=== PATIENT | female | born 1990 | race Caucasian/White ===

== ENCOUNTER 2020-05-05 12:58 | Outpatient (REF) | payer OTHER, SELFPAY | END 2020-05-05 12:59 | disposition home or self-care (01) | LOC: HO.LAB 12:58 | PROVIDERS: Visit Provider Internal Medicine | DX: Z20.828 Contact with and (suspected) exposure to other viral communicable diseases (principal) | CPT/HCPCS: C9803; U0003 ==

== ENCOUNTER 2020-11-08 20:41 | Emergency (ER) | payer OTHER, SELFPAY ==
[2020-11-08 20:59] VITALS: BP 138/75; PULSE 75; RESP 16; TEMP 37.2; O2SAT 100; BMI 48.1
--- NOTE | 2020-11-08 22:10 | PC.NURSE ---
UA obtained and sent. Awaiting primary MD eval.
[2020-11-08 22:13] LABS: Glucose Urine UA NEG (NEG); Leukocyte Esterase Urine NEG (NEG); Nitrite Urine NEG (NEG); Specific Gravity - Urine >= 1.030 (1.005-1.025); Urine Blood NEG (NEG); Urine Ketones NEG (NEG); Urine Protein TRACE MG/DL (NEG-TRACE)
[2020-11-08 22:14] LABS: Appearance Urine CLEAR; Color Urine DARK YELLOW
[2020-11-08 22:15] LABS: UPreg QC Valid YES; Urine Pregnancy POSITIVE (NEGATIVE)
[2020-11-08 22:25] VITALS: BP 106/78; PULSE 74; RESP 16; TEMP 36.4; O2SAT 100
--- NOTE | 2020-11-08 22:38 | ED.ABDPAIN ---
HPI - Abdominal Pain General Chief Complaint: Abdominal Pain Stated Complaint: ABD, BACK PAIN Time Seen by Provider: 11/08/20 22:36 Source: patient Mode of arrival: ambulatory Limitations: no limitations History of Present Illness HPI narrative: Patient's history of constipation complaining of lower abdominal pain for last 1 week with slight nausea no vomiting no diarrhea last bowel movement was couple of days ago patient has missed her menstrual period last month. No vaginal bleeding or spotting no vomiting Related Data Allergies Allergy/AdvReac Type Severity Reaction Status Date / Time No Known Allergies Allergy Unverified 02/07/20 17:16 Review of Systems Review of Systems Yes all other systems are reviewed and are negative Physical Exam Vital Signs: Vital Signs: Last Vital Signs Temp 97.6 F 11/08/20 22:25 Pulse 74 11/08/20 22:25 Resp 16 11/08/20 22:25 BP 106/78 11/08/20 22:25 Pulse Ox 100 11/08/20 22:25 Body Mass Index 48.1 Appearance: Alert. Oriented X3. No acute distress. Eyes: PERRLA, No Nystagmus ENT: Pharynx normal. Oral Mucosa moist Neck: Normal inspection. Neck supple. CVS: Normal heart rate and rhythm. Pulses normal. Respiratory: No respiratory distress. Equal air entry bilateral, no wheezing/rales/rhonchi Abdomen: Soft and mild diffuse tenderness lower abdomen Bowel sounds are present, no mass palpable, no CVA tenderness Skin: Skin warm and dry. Normal skin color. Normal skin turgor. Extremities: No lower extremity edema. No calf tenderness Neuro: Oriented X 3. No motor deficit. No sensory deficit. MDM - Abdominal Pain MDM Narrative Medical decision making narrative: Patient's early likely 5-6 weeks advised to follow with Ob patient's blood type is O-positive Lab Data Attestation: I reviewed the patient's lab results. Result diagrams: 11/08/20 22:48 11/08/20 22:48 Labs: Lab Results 11/08/20 11/08/20 11/08/20 Range/Units 22:00 22:00 22:48 WBC 10.4 (4.8-10.8) X10*3/uL RBC 4.33 (4.20-5.50) X10*6/uL Hgb 11.7 L (12.0-16.0) g/dl Hct 35.8 L (37-47) % MCV 82.7 (80-98) fL MCH 27.0 (27.0-33.0) pg MCHC 32.7 (31.0-35.0) g/dl RDW 14.1 (11.0-16.0) % Plt Count 207 (160-400) X10*3/uL MPV 10.1 (9.4-12.3) fL Immature Gran % (Auto) 0.3 (0.0-0.4) % Neut % (Auto) 61.2 (45-73) % Lymph % (Auto) 31.1 (20-40) % [place] % (Auto) 6.5 (2-11) % Eos % (Auto) 0.6 (0-4) % Baso % (Auto) 0.3 (0-2) % Lymph # (Auto) 3.2 (1.2-4.9) X10*3/uL [place] # (Auto) 0.7 (0.1-1.2) X10*3/uL Eos # (Auto) 0.1 (0.0-0.4) X10*3/uL Baso # (Auto) 0.0 (0.0-0.2) X10*3/uL Abs Immat Gran (auto) 0.03 (0.00-0.03) X10*3/uL Absolute Neuts (auto) 6.4 (2.0-8.3) X10*3/uL Absolute Nucleated RBC 0.000 (0.0-0.012) X10*3/uL Nucleated RBC % (auto) 0.0 (0.0-0.2) /100WBC Sodium (135-145) mmol/L Potassium (3.3-5.1) mmol/L Chloride (96-108) mmol/L Carbon Dioxide (22-29) mmol/L Anion Gap (12-20) BUN (9-16) mg/dL Creatinine (0.5-1.4) mg/dL Estim Creat Clear Calc Estimated GFR Random Glucose (60-115) mg/dL Calcium (8.4-10.2) mg/dL Beta HCG, Quant mIU/mL Urine Color DARK YELLOW Urine Appearance CLEAR Urine pH 6.0 (5.0-8.0) Ur Specific [place] >= 1.030 H (1.005-1.025) Urine Protein TRACE (NEG-TRACE) MG/DL Urine Glucose (UA) NEG (NEG) MG/DL Urine Ketones NEG (NEG) MG/DL Urine Blood NEG (NEG) Urine Nitrite NEG (NEG) Ur Leukocyte Esterase NEG (NEG) Urine Test POSITIVE H (NEGATIVE) Blood Type 11/08/20 11/08/20 Range/Units 22:48 22:48 WBC (4.8-10.8) X10*3/uL RBC (4.20-5.50) X10*6/uL Hgb (12.0-16.0) g/dl Hct (37-47) % MCV (80-98) fL MCH (27.0-33.0) pg MCHC (31.0-35.0) g/dl RDW (11.0-16.0) % Plt Count (160-400) X10*3/uL MPV (9.4-12.3) fL Immature Gran % (Auto) (0.0-0.4) % Neut % (Auto) (45-73) % Lymph % (Auto) (20-40) % [place] % (Auto) (2-11) % Eos % (Auto) (0-4) % Baso % (Auto) (0-2) % Lymph # (Auto) (1.2-4.9) X10*3/uL [place] # (Auto) (0.1-1.2) X10*3/uL Eos # (Auto) (0.0-0.4) X10*3/uL Baso # (Auto) (0.0-0.2) X10*3/uL Abs Immat Gran (auto) (0.00-0.03) X10*3/uL Absolute Neuts (auto) (2.0-8.3) X10*3/uL Absolute Nucleated RBC (0.0-0.012) X10*3/uL Nucleated RBC % (auto) (0.0-0.2) /100WBC Sodium 137 (135-145) mmol/L Potassium 4.2 (3.3-5.1) mmol/L Chloride 105 (96-108) mmol/L Carbon Dioxide 26 (22-29) mmol/L Anion Gap 10 L (12-20) BUN 16 (9-16) mg/dL Creatinine 0.84 (0.5-1.4) mg/dL Estim Creat Clear Calc 141.1 Estimated GFR > 60 Random Glucose 107 (60-115) mg/dL Calcium 8.8 (8.4-10.2) mg/dL Beta HCG, Quant 6845 mIU/mL Urine Color Urine Appearance Urine pH (5.0-8.0) Ur Specific [place] (1.005-1.025) Urine Protein (NEG-TRACE) MG/DL Urine Glucose (UA) (NEG) MG/DL Urine Ketones (NEG) MG/DL Urine Blood (NEG) Urine Nitrite (NEG) Ur Leukocyte Esterase (NEG) Urine Test (NEGATIVE) Blood Type O Positive Discharge Plan Discharge Clinical Impression: at early stage Patient Disposition: Home, Self-Care Instructions: First Trimester (ED) Additional Instructions: Follow-up with OB your about 5-6 weeks Referrals: Venkata Sumner MD [Physician] - 2 weeks [facility] Social History Social History Advance Directives: No Advance Directives Information Provided: Yes
[2020-11-08 22:55] LABS: MANUAL DIFF FLAG NO
--- NOTE | 2020-11-08 22:55 | PC.NURSE ---
radio/tv technician at bedside to obtain labs.
[2020-11-08 22:56] LABS: Basophils Percent Auto 0.3 % (0-2); Eosinophils Absolute Auto 0.1 X10*3/uL (0.0-0.4); Eosinophils Percent Auto 0.6 % (0-4); Hematocrit 35.8 % (37-47); Hemoglobin 11.7 g/dl (12.0-16.0); Imm Gran Abs Auto 0.03 X10*3/uL (0.00-0.03); Imm Gran Pct Auto 0.3 % (0.0-0.4); Lymphocytes Absolute Auto 3.2 X10*3/uL (1.2-4.9); Lymphocytes Percent Auto 31.1 % (20-40); Mean Corpuscular HGB Conc 32.7 g/dl (31.0-35.0); Mean Corpuscular Volume 82.7 fL (80-98); Mean Platelet Volume 10.1 fL (9.4-12.3); Monocytes Absolute Auto 0.7 X10*3/uL (0.1-1.2); Monocytes Percent Auto 6.5 % (2-11); Neutrophils Absolute Auto 6.4 X10*3/uL (2.0-8.3); Neutrophils Percent Auto 61.2 % (45-73); Platelet Count 207 X10*3/uL (160-400); Red Blood Count 4.33 X10*6/uL (4.20-5.50); Red Cell Distribution Width 14.1 % (11.0-16.0); White Blood Count 10.4 X10*3/uL (4.8-10.8)
[2020-11-08 23:36] LABS: Anion Gap 10 (12-20); Blood Urea Nitrogen 16 mg/dL (9-16); Calcium 8.8 mg/dL (8.4-10.2); Carbon Dioxide 26 mmol/L (22-29); Chloride 105 mmol/L (96-108); Creatinine Clr Calc Pharmacy 141.1; Estimated Glomerular Filt Rate > 60; Glucose Random 107 mg/dL (60-115); Potassium 4.2 mmol/L (3.3-5.1); Sodium 137 mmol/L (135-145)
[2020-11-08 23:43] LABS: HCG Quantitative 6845 mIU/mL
[2020-11-08 23:57] VITALS: BP 126/81; PULSE 74; RESP 16; O2SAT 100
== END 2020-11-09 00:04 | disposition home or self-care (01) ==
PROVIDERS: Emergency Provider Internal Medicine
DX: O26.891 Other specified pregnancy related conditions, first trimester (principal); R10.30 Lower abdominal pain, unspecified; Z3A.00 Weeks of gestation of pregnancy not specified
CPT/HCPCS: 36415; 80048; 81003; 81025; 84702; 85025; 86900; 86901; 99283; 99284

== ENCOUNTER 2020-11-27 21:23 | Emergency (ER) | payer OTHER, SELFPAY ==
[2020-11-27 21:48] VITALS: BP 119/74; PULSE 77; RESP 18; TEMP 36.7; O2SAT 96; BMI 51.4
--- NOTE | 2020-11-27 22:22 | ED.GENADULT ---
HPI - General Adult General Chief complaint: General Medical Stated complaint: cp and trouble swallowing Time Seen by Provider: 11/27/20 22:10 Source: patient Mode of arrival: ambulatory Limitations: no limitations History of Present Illness MD complaint: burning in throat, stuffy nose, hard to breathe, rash Onset (ago): day(s) Location: mouth Radiation: non-radiation Severity: moderate Quality: burning Pain Consistency: constant Relieving factors: none Exacerbating factors: other (swallowing) Associated symptoms: headaches and other (because she is stuffy it is hard to breath, has small itchy bumps on her as well - her nephew had scabies) Treatments prior to arrival: none Related Data Previous Rx's Medication Instructions Recorded amoxicillin 500 mg PO BID 7 Days #14 tab 11/27/20 permethrin 1 appl TOPICAL Q14D #60 g 11/27/20 Allergies Allergy/AdvReac Type Severity Reaction Status Date / Time No Known Allergies Allergy Verified 11/27/20 21:48 Review of Systems Review of Systems: Constitutional : No Weight loss, No Fever, No Chills ENT/Mouth : pos sore throat, No Rhinorrhea, pos nasal congestion Eyes: No Eye Pain, No Swelling, No Redness Cardiovascular : No Chest Pain, No SOB Respiratory : No Cough, No Sputum, No Wheezing Gastrointestinal : No Nausea, No Vomiting, No Diarrhea Genitourinary : No Dysuria, No Urinary Frequency, No Hematuria, Musculoskeletal : No joint pain, No Myalgias, No Joint Swelling Skin : No Skin Lesions, pos rash Neuro : No Weakness, No Numbness, No Dizziness, No Headache Psych : No Anxiety/Panic, No Depression Heme/Lymph: No Bruising, No Bleeding,No Lymphadenopathy All other systems reviewed and are negative [facility] Past Medical History Attestation statement: The following information was validated with the patient. Medical History No active medical problems Social History Social History (Updated 11/27/20 @ 22:46 by Franca Yanez DO) Alcohol intake: never Patient Tobacco Use Status: Never used Tobacco Use of substances other than those prescribed or required for medical reasons: No Advance Directives: No Advance Directives Information Provided: No Patient : Yes Physical Exam Vital Signs: Vital Signs: Last Vital Signs Temp 98.1 F 11/27/20 21:48 Pulse 77 11/27/20 21:48 Resp 18 11/27/20 21:48 BP 119/74 11/27/20 21:48 Pulse Ox 96 11/27/20 21:48 Body Mass Index 51.4 Appearance: Alert. Oriented X3. No acute distress. Eyes: Pupils equal, round and reactive to light. ENT: Pharynx mild erythema no exudates, no massive swelling. nasal congestion Neck: Normal inspection. Neck supple. CVS: Normal heart rate and rhythm. Pulses normal. Respiratory: No respiratory distress. Breath sounds normal. Abdomen: Soft and non-tender. Skin: Skin warm and dry. Normal skin color. Normal skin turgor. Extremities: No lower extremity edema. No calf ttp Neuro: Oriented X 3. No motor deficit. No sensory deficit. Course Course Course Narrative: not toxic, stable for DC Medical Decision Making [facility] Narrative Medical decision making narrative: 30 yo female 1 month comes in with sore throat, nasal congestion which is making it hard to breathe, she is very congested at this time - throat is mildy erythematous, no mas seen, clear lungs, no pleuritic chest pain her dyspnea is related to URI symptoms and nasal congestion - COVID swab, strep swab - supportive care tylenol, benadryl, maalox - overall not toxic suspect URI vs severe allergies. ALso has scabies like rash on her body with positive exposure to nephew - permethrin ordered. Lab Data Labs: Lab Results 11/27/20 11/27/20 Range/Units 22:48 22:48 COVID-19 (ROGELIO) Negative (Negative) COVID-19 Clin Com See Note S. pyogenes GrpA SHERIN Negative (Negative) Discharge Plan Discharge Clinical Impression: Exposure to scabies Pharyngitis Qualifiers: Pharyngitis/tonsillitis etiology: unspecified etiology Qualified Code(s): J02.9 - Acute pharyngitis, unspecified Sinusitis Qualifiers: Sinusitis location: frontal Chronicity: acute Recurrence: non-recurrent Qualified Code(s): J01.10 - Acute frontal sinusitis, unspecified Patient Disposition: Home, Self-Care Instructions: Pharyngitis (ED), Sinusitis (ED), Scabies (ED) Additional Instructions: return to ED for any worsening symptoms or concerns take benadryl 25mg every 6 hours as needed for allergies/congestion COVID TEST IS NEGATIVE tums is safe in Prescriptions: New amoxicillin 500 mg tablet 500 mg PO BID 7 Days Qty: 14 RF: 0 permethrin 5 % cream 1 appl topical Q14D Qty: 60 RF: 0 Referrals: Physician,Unknown [Primary Care Provider] - 2 days (if not better) Stand Alone Forms: Work/School Release
[2020-11-27] MEDS: diphenhydrAMINE HCL 25 MG TABLET PO (23:09)
[2020-11-27] MEDS: Acetaminophen 325 MG TABLET 650 MG PO (23:09)
[2020-11-27] MEDS: Magnesium Hydrox/Alum Hydrox 30 ML ORAL.SUSP PO (23:09)
[2020-11-27 23:13] LABS: IDNOW Serial# 08D9AD1C; Strep A Nucleic Acid Negative (Negative)
[2020-11-27 23:22] LABS: COVID-19 Test Negative (Negative); IDNOW Serial# 9DD0AD1C
== END 2020-11-27 23:46 | disposition home or self-care (01) ==
PROVIDERS: Emergency Provider Emergency Medicine
DX: O99.511 Diseases of the respiratory system complicating pregnancy, first trimester (principal); J01.10 Acute frontal sinusitis, unspecified; J02.9 Acute pharyngitis, unspecified; Z3A.00 Weeks of gestation of pregnancy not specified; Z20.89 Contact with and (suspected) exposure to other communicable diseases; Z20.822 Contact with and (suspected) exposure to COVID-19
CPT/HCPCS: 36415; 87635; 87651; 99283; 99284; Q0163

== ENCOUNTER 2022-03-22 09:01 | Emergency (ER) | payer OTHER, SELFPAY ==
[2022-03-22 09:03] VITALS: BP 151/88; PULSE 77; RESP 19; TEMP 36.6; O2SAT 100; BMI 56.5
[2022-03-22 10:33] LABS: Influenza A PCR NEGATIVE (Negative); Influenza B PCR NEGATIVE (Negative); Resp Syncy Virus RNA Qual PCR NEGATIVE (Negative); SARS COV2 PCR INHOUSE NEGATIVE (Negative)
--- NOTE | 2022-03-22 12:38 | ED_ITS ---
HPI - URI/Sore Throat General Chief Complaint: Upper Respiratory Symptoms Stated Complaint: Cough/Sore throat/Difficulty breathing Time Seen by Provider: 03/22/22 12:18 Source: patient Mode of arrival: ambulatory Limitations: no limitations History of Present Illness HPI Narrative: 31-year-old female presents to ED for cough, fever, and body aches and is congested for couple days. Denies any chest pain or shortness of breath. Patient denies any abdominal pain, flank pain, dysuria, hematuria, headache, neck stiffness, photophobia Related Data Previous Rx's Medication Instructions Recorded amoxicillin 500 mg tablet 500 mg PO BID 7 days #14 tabs 11/27/20 permethrin 5 % topical cream 1 appl topical Q14D 2 doses #60 11/27/20 grams albuterol sulfate 90 mcg/actuation 2 puff inhalation Q4-6H PRN 03/22/22 aerosol inhaler shortness of breath or wheezing #8.5 grams azithromycin 250 mg tablet See Rx Instructions PO .COMPLEX #6 03/22/22 tabs benzonatate 100 mg capsule 100 mg PO TID PRN cough 5 days #15 03/22/22 caps Allergies Allergy/AdvReac Type Severity Reaction Status Date / Time No Known Allergies Allergy Verified 11/27/20 21:48 Review of Systems Review of Systems: COugh, fever, runny nose Yes all other systems are reviewed and are negative [facility] Past Medical History Medical History No active medical problems Social History Social History (Updated 11/27/20 @ 22:46 by Sadie Yanez DO) Alcohol intake: never Patient Tobacco Use Status: Never used Tobacco Advance Directives: No Advance Directives Information Provided: No Physical Exam Vital Signs: Vital Signs: Last Vital Signs Temp 98 F 03/22/22 09:03 Pulse 77 03/22/22 09:03 Resp 19 03/22/22 09:03 BP 151/88 H 03/22/22 09:03 Pulse Ox 100 03/22/22 09:03 O2 Del Method 03/22/22 09:03 BMI result Body Mass Index 56.5 Const: General: cooperative, healthy appearing, comfortable, no acute distress, well developed, alert, awake and Physically active Orientation/consciousness: oriented to person, oriented to place, oriented to time and patient oriented x3 HEENT: Head: Yes normal to inspection, Yes No palpable skull fracture present, Yes normocephalic, Yes atraumatic and No abrasion Eyes: General: appearance normal, both eyes and all related structures Neck: Neck: Yes normal visual inspection, Yes full ROM, Yes no lymphadenopathy, Yes no meningeal signs, Yes trachea midline, Yes supple, No anterior neck swelling and No tender Chest: Chest palpation & inspection: normal inspection of the chest and normal palpation of entire chest wall Resp: Effort & Inspection: normal respiratory effort and able to speak in complete sentences Auscultation: clear to auscultation bilaterally Cardio: Jugular venous distension: no JVD Heart sounds: S1 normal heart sound present and S2 normal heart sound present GI: Inspection: Yes normal to inspection and No abdominal wall ecchymosis Palpation (GI): Soft to palpation, not firm, nontender, no guarding and not rigid : General: No CVA tenderness and Yes no CVA tenderness Back/Spine/Pelvis: Back: no CVA tenderness, No CVA tenderness and No back tenderness Skin: General skin exam: no rashes or lesions noted and elasticity normal Neuro: General: oriented to person, oriented to place, oriented to time, patient oriented x3, gait normal, tone normal and no meningeal signs Cranial nerves: Yes CN's II-XII intact bilaterally Extrem: Other: lower extremiteis. negative for sweling, pitting edmea, or calf tenderness General: Yes normal to inspection and Yes full ROM Psych: Appearance: grossly normal, well kempt and not disheveled Course Course Course Narrative: SARs ordered Reevaluation(s) Reevaluation #1: COVID influenza and RSV negative. patient will be treated as Bronchitis Time: 13:00 MDM - URI/Sore Throat MDM Narrative Medical decision making narrative: Gianni Lab Data Labs: Lab Results 03/22/22 Range/Units 09:10 Influenza Type A (PCR) NEGATIVE (Negative) Influenza Type B (PCR) NEGATIVE (Negative) RSV RNA Qual (PCR) NEGATIVE (Negative) SARS-CoV-2 RNA (RT-PCR) NEGATIVE (Negative) Discharge Plan Discharge Clinical Impression: Bronchitis Patient Disposition: Home, Self-Care Instructions: Acute Bronchitis (ED) Additional Instructions: Your SARS, RSV, COVID, influenza came back negative. You will be discharged as bronchitis. He will be discharged with albuterol pump, coughing medication, antibiotic. Return to ED for any coughing up blood, leg swelling, calf pain, chest pain, shortness of breath, weakness, dizziness intractable fever, or any other concerning symptoms. Please follow up [facility] PCP Prescriptions: New azithromycin 250 mg tablet See Rx Instructions .ROUTE .COMPLEX Qty: 6 0RF Rx Instructions: For 250 mg dose pack: take 500 mg today (day 1), then 250 mg for 4 days (days 2-5) albuterol sulfate 90 mcg/actuation HFA aerosol inhaler 2 puff inhalation Q4-6H PRN (Reason: shortness of breath or wheezing) Qty: 8.5 0RF benzonatate 100 mg capsule 100 mg PO TID PRN (Reason: cough) 5 Days Qty: 15 0RF No Action amoxicillin 500 mg tablet 500 mg PO BID 7 Days Qty: 14 0RF permethrin 5 % cream 1 appl topical Q14D Qty: 60 0RF Rx Instructions: apply second treatment 14 days after first treatment if live lice remain Stand Alone Forms: Work/School Release Print Language: Kosovan
== END 2022-03-22 13:42 | disposition home or self-care (01) ==
PROVIDERS: Emergency Provider Student in an Organized Health Care Education/Training Program; PCP Internal Medicine
DX: J40 Bronchitis, not specified as acute or chronic (principal); R05.9 Cough, unspecified; R50.9 Fever, unspecified; M79.10 Myalgia, unspecified site; Z20.822 Contact with and (suspected) exposure to COVID-19; Z79.899 Other long term (current) drug therapy
CPT/HCPCS: 0241U; 99282; 99283

== ENCOUNTER 2024-05-17 12:31 | Emergency (ER) | payer OTHER, SELFPAY ==
--- NOTE | ~2024-05-17 | XR_ITS ---
EXAMINATION: XR CHEST CLINICAL INFORMATION: pain COMPARISON: June 2014. TECHNIQUE: 2 views of the chest were obtained. FINDINGS: New prominent opacities are observed in the right upper and right middle lobes appearing suspicious for infiltrates. The hilar regions and pulmonary vascularity appear grossly unremarkable. No distinct pleural effusions. XR/XR chest 2V IMPRESSION: New right upper and right middle lobe infiltrates. Electronically signed by: George Ortiz MD 05/17/2024 01:37 PM [facility] [place]
--- NOTE | 2024-05-17 12:39 | ECG_ITS ---
Test Reason : cp Blood Pressure : / mmHG Vent. Rate : 095 BPM Atrial Rate : 095 BPM P-R Int : 118 ms QRS Dur : 086 ms QT Int : 340 ms P-R-T Axes : 034 026 -28 degrees QTc Int : 427 ms Normal sinus rhythm Nonspecific ST and T wave abnormality Abnormal ECG No previous ECGs available Referred By: Jose Billings Electronically Signed By:ROC HOWELL MD
[2024-05-17 12:50] LABS: MANUAL DIFF FLAG NO
[2024-05-17 12:56] LABS: Basophils Percent Auto 0.4 % (0-2); Eosinophils Absolute Auto 0.1 X10*3/uL (0.0-0.4); Eosinophils Percent Auto 0.8 % (0-4); Hematocrit 32.9 % (37.0-47.0); Hemoglobin 10.8 g/dl (12.0-16.0); Imm Gran Abs Auto 0.03 X10*3/uL (0.00-0.03); Imm Gran Pct Auto 0.3 % (0.0-0.4); Lymphocytes Absolute Auto 1.9 X10*3/uL (1.2-4.9); Lymphocytes Percent Auto 20.5 % (20-40); Mean Corpuscular HGB Conc 32.8 g/dl (31.0-35.0); Mean Corpuscular Hemoglobin 26.4 pg (27.0-33.0); Mean Corpuscular Volume 80.4 fL (80.0-98.0); Mean Platelet Volume 10.2 fL (9.4-12.3); Monocytes Absolute Auto 0.7 X10*3/uL (0.1-1.2); Monocytes Percent Auto 7.9 % (2-11); Neutrophils Absolute Auto 6.5 x10*3/uL (2.0-8.3); Neutrophils Percent Auto 70.1 % (45-73); Platelet Count 228 X10*3/uL (160-400); Red Blood Count 4.09 X10*6/uL (4.20-5.50); Red Cell Distribution Width 13.2 % (11.0-16.0); White Blood Count 9.3 X10*3/uL (4.8-10.8)
[2024-05-17 12:58] LABS: INTERNATIONAL NORM RATIO 1.2 (0.9-1.1); Prothrombin Time 13.7 SEC (10.9-12.4)
[2024-05-17 13:04] VITALS: BP 125/77; PULSE 105; RESP 18; TEMP 37.4; O2SAT 95; BMI 56.9
--- NOTE | 2024-05-17 13:05 | ED_ITS ---
HPI - General Adult General Chief complaint: Upper Respiratory Symptoms Stated complaint: chest pain cough Time Seen by Provider: 05/17/24 15:12 Source: patient and RN notes reviewed Mode of arrival: ambulatory Limitations: no limitations History of Present Illness ED Provider: Norma Khan PA-C HPI narrative: This is a 33-year-old female who presents emergency department with complaints of congestion, fevers and chills, shortness for breath, headache, productive cough with green-colored sputum x 7 days. Patient states that her was sick 2 weeks ago. She has been taking DayQuil, NyQuil with out any relief. Denies any wheezing or chest pain. She works as a social work program coordinator. She does report that she has not had a bowel movement in 6 days, which is atypical of her. She endorses that she has not eaten in, or has had any activity over the last several days as she has been feeling sick. Denies any abdominal pain, nausea, vomiting or diarrhea. No other complaints or concerns at this time. MD complaint: Cough, congestion Onset (ago): week(s) Radiation: non-radiation Relieving factors: none Exacerbating factors: none Associated symptoms: cough, fever/chills and headaches Treatments prior to arrival: none Related Data Previous Rx's ?Medication ?Instructions ?Recorded amoxicillin 500 mg tablet 500 mg PO BID 7 days #14 tabs 11/27/20 permethrin 5 % topical cream 1 appl topical Q14D 2 doses #60 11/27/20 grams albuterol sulfate 90 mcg/actuation 2 puff inhalation Q4-6H PRN 03/22/22 aerosol inhaler shortness of breath or wheezing #8.5 grams azithromycin 250 mg tablet See Rx Instructions PO .COMPLEX #6 03/22/22 tabs benzonatate 100 mg capsule 100 mg PO TID PRN cough 5 days #15 03/22/22 caps amoxicillin 875 mg-potassium 1 tab PO BID 7 days #14 tabs 05/17/24 clavulanate 125 mg tablet azithromycin 250 mg tablet See Rx Instructions PO .COMPLEX #6 05/17/24 (Zithromax) tabs docusate calcium 240 mg capsule 240 mg PO BEDTIME #14 caps 05/17/24 polyethylene glycol 3350 17 17 g PO DAILY #119 grams 05/17/24 gram/dose oral powder (ClearLax) Allergies Allergy/AdvReac Type Severity Reaction Status Date / Time No Known Allergies Allergy Verified 05/17/24 13:10 Review of Systems 2 Review of Systems: Yes all other systems are reviewed and are negative Constitutional: Constitutional: Reports as per [facility] Past Medical History Medical History No active medical problems Social History Social History (Updated 11/27/20 @ 22:46 by Sadie Yanez DO) Alcohol intake: never Patient Tobacco Use Status: Never used Tobacco Advance Directives: No Advance Directives Information Provided: No Physical Exam ED Vital Signs: Vital Signs - 24 hr 05/17/24 13:04 05/17/24 14:00 05/17/24 15:48 Temperature 99.3 F 98.9 F Pulse Rate 105 H 103 H 98 Respiratory Rate 18 20 20 Blood Pressure 125/77 132/91 H 137/89 Pulse Oximetry 95 99 98 Oxygen Delivery Method Room Air Room Air Room Air 05/17/24 16:21 05/17/24 17:46 Temperature 0 F L Pulse Rate 87 87 Respiratory Rate 18 18 Blood Pressure 00/00 L Pulse Oximetry Oxygen Delivery Method BMI result Body Mass Index 56.9 Const General: cooperative, comfortable and no acute distress Orientation/consciousness: patient oriented x3 Limitations: no limitations HENMT Other: Oropharynx is mildly erythematous, no tonsillar hypertrophy or exudates noted. Head: Yes normal to inspection, Yes normocephalic and Yes atraumatic Ears: hearing grossly normal bilaterally and TM's normal bilaterally General nose exam: Normal external nose present Face and sinus: Yes normal facial exam Mouth: Normal oral and palatal mucosa present and moist mucous membranes Eyes General: appearance normal, both eyes and all related structures Eyelids: Yes eyelids normal Conjunctivae: conjunctivae normal Sclerae: sclerae normal Pupils: Equal, round and reactive pupils present EOM: EOMs intact bilaterally Neck Neck: Yes normal visual inspection, Yes full ROM and Yes no lymphadenopathy Lymphatic: no lymphadenopathy noted Chest Chest palpation & inspection: normal inspection of the chest Resp Other: Lungs with coarse cough noted, diminished throughout, no wheezes, rales, or rhonchi Effort & Inspection: normal respiratory effort and able to speak in complete sentences Cardio Rate: regular rate Rhythm: regular rhythm Heart sounds: S1 normal heart sound present and S2 normal heart sound present GI Other: Abdomen is soft, nontender, nondistended Inspection: Yes normal to inspection Skin General skin exam: no rashes or lesions noted Trauma: no lacerations or abrasions Wounds: no wounds Neuro General: patient oriented x3 and moves all extremities Cranial nerves: Yes Equal, round and reactive pupils present Extrem General: Yes normal to inspection Right upper extremity: normal to inspection Left upper extremity: normal to inspection Right lower extremity: normal to inspection Left lower extremity: normal to inspection Course Course Course Narrative: RME, this is a rapid medical exam performed by James Billings please refer to primary provider for complete H&P- 33-year-old female presents for evaluation of body aches, cough, headache, weakness and shortness of breath. EKG was already performed. Plan for labs, chest x-ray and viral swabs. Reevaluation(s) Reevaluation #1: HCG negative, patient feeling much better after receiving updraft. Discharged on azithromycin Augmentin. Given strict return precautions. She understands agrees with plan. Patient stable for discharge Medications Administered Discontinued Medications Generic Name Dose Route Start Last Admin Trade Name Henryq PRN Reason Stop Dose Admin Acetaminophen 975 mg 05/17/24 15:58 05/17/24 16:18 Acetaminophen 325 Mg Tablet PO 05/17/24 15:59 975 mg ONCE ONE Administration Albuterol Sulfate 2.5 mg/ 5 mg 05/17/24 16:13 05/17/24 16:24 Albuterol Sulfate 2.5 mg INHALE 05/17/24 16:14 5 mg ONCE ONE Administration Medical Decision Making Medical Decision Making [facility] Narrative: This is a 33-year-old female, with no known medical problems, who presents emergency department with complaints of cough, congestion x1 week. On arrival, patient tachycardic however all other vital signs within normal limits. She has no leukocytosis, H&H revealing normocytic anemia 10.8/32.9. Lipase slightly elevated at 106, she has no abdominal tenderness. Random glucose 130, no electrolyte derangements. X-ray was ordered prior to my assessment, revealing new right upper and right middle lobe infiltrates. She tested negative for flu, RSV, COVID, and strep. She is unsure when her last menstrual cycle was, reports that there could be a chance she is also . HCG quant was ordered. Differential Diagnosis Differential Diagnoses: The differential diagnosis associated with the presentation includes Pneumonia, flu, COVID, RSV, URI Lab Data [facility] Lab Attestation statement: I reviewed the patient's lab results. See MDM 05/17/24 12:45 05/17/24 12:45 Labs: Lab Results 05/17/24 05/17/24 05/17/24 Range/Units 12:44 12:45 14:32 WBC 9.3 (4.8-10.8) X10*3/uL RBC 4.09 L (4.20-5.50) X10*6/uL Hgb 10.8 L (12.0-16.0) g/dl Hct 32.9 L (37.0-47.0) % MCV 80.4 (80.0-98.0) fL MCH 26.4 L (27.0-33.0) pg MCHC 32.8 (31.0-35.0) g/dl RDW 13.2 (11.0-16.0) % Plt Count 228 (160-400) X10*3/uL MPV 10.2 (9.4-12.3) fL Immature Gran % (Auto) 0.3 (0.0-0.4) % Neut % (Auto) 70.1 (45-73) % Lymph % (Auto) 20.5 (20-40) % [place] % (Auto) 7.9 (2-11) % Eos % (Auto) 0.8 (0-4) % Baso % (Auto) 0.4 (0-2) % Lymph # (Auto) 1.9 (1.2-4.9) X10*3/uL [place] # (Auto) 0.7 (0.1-1.2) X10*3/uL Eos # (Auto) 0.1 (0.0-0.4) X10*3/uL Baso # (Auto) 0.0 (0.0-0.2) X10*3/uL Abs Immat Gran (auto) 0.03 (0.00-0.03) X10*3/uL Absolute Neuts (auto) 6.5 (2.0-8.3) x10*3/uL Absolute Nucleated RBC 0.000 (0.0-0.012) X10*3/uL Nucleated RBC % (auto) 0.0 (0.0-0.2) /100WBC PT 13.7 H (10.9-12.4) SEC INR 1.2 H (0.9-1.1) Sodium 137 (135-145) mmol/L Potassium 3.5 (3.3-5.1) mmol/L Chloride 106 (96-108) mmol/L Carbon Dioxide 27 (22-29) mmol/L Anion Gap 8 L (12-20) BUN 12 (9-16) mg/dL Creatinine 0.76 (0.5-1.4) mg/dL Estim Creat Clear Calc TNP Estimated GFR > 60 Random Glucose 130 H (60-115) mg/dL Calcium 8.7 (8.4-10.2) mg/dL Total Bilirubin 0.7 (0.0-1.0) mg/dL AST 26 (5-31) U/L ALT 17 (0-31) U/L Alkaline Phosphatase 70 (39-117) U/L Troponin I High Sens < 2.7 (<3.5-17.0) ng/L Total Protein 7.2 (6.5-8.0) g/dL Albumin 3.3 L (3.5-5.0) g/dL Lipase 106 H (8-78) U/L Beta HCG, Quant < 2 mIU/mL Influenza Type A (PCR) NEGATIVE (Negative) Influenza Type B (PCR) NEGATIVE (Negative) RSV RNA Qual (PCR) NEGATIVE (Negative) SARS-CoV-2 RNA (RT-PCR) NEGATIVE (Negative) S. pyogenes GrpA SHERIN Negative (Negative) Radiology Impression Discussion of test interpretation with radiology: I have reviewed the radiologist's reading. Radiologist Impression: EXAMINATION: XR CHEST CLINICAL INFORMATION: pain COMPARISON: June 2014. TECHNIQUE: 2 views of the chest were obtained. FINDINGS: New prominent opacities are observed in the right upper and right middle lobes appearing suspicious for infiltrates. The hilar regions and pulmonary vascularity appear grossly unremarkable. No distinct pleural effusions. XR/XR chest 2V IMPRESSION: New right upper and right middle lobe infiltrates. Electronically signed by: George Ortiz MD 05/17/2024 01:37 PM [facility] Dictated By: George Ortiz Discharge Plan Discharge Clinical Impression: Pneumonia, Constipation Patient Disposition: Home, Self-Care Instructions: Community Acquired Pneumonia (ED), Pneumonia (ED) Additional Instructions: You were seen in the emergency department in you were found to have pneumonia. I am putting you on 2 different types of antibiotics, please take full course even if your symptoms improve. Amoxicillin/ clavulanate is to be taken 2 times a day for 7 days. Azithromycin take 2 tablets today, then take 1 tablet for the next 4 days. Drink plenty of fluids get plenty of rest. Alternate between ibuprofen and Tylenol as needed for pain. Use albuterol inhaler as needed for shortness of breath/wheezing. If any new or worsening symptoms occur including but not limited to high fevers, shortness of breath, chest pain, please seek emergent care. Prescriptions: New amoxicillin-pot clavulanate 875-125 mg tablet 1 tab PO BID 7 Days Qty: 14 0RF azithromycin [Zithromax] 250 mg tablet See Rx Instructions .ROUTE .COMPLEX Qty: 6 0RF Rx Instructions: For 250 mg dose pack: take 500 mg today (day 1), then 250 mg for 4 days (days 2-5) polyethylene glycol 3350 [ClearLax] 17 gram/dose powder 17 g PO DAILY Qty: 119 0RF docusate calcium 240 mg capsule 240 mg PO BEDTIME Qty: 14 0RF No Action amoxicillin 500 mg tablet 500 mg PO BID 7 Days Qty: 14 0RF permethrin 5 % cream 1 appl topical Q14D Qty: 60 0RF Rx Instructions: apply second treatment 14 days after first treatment if live lice remain azithromycin 250 mg tablet See Rx Instructions .ROUTE .COMPLEX Qty: 6 0RF Rx Instructions: For 250 mg dose pack: take 500 mg today (day 1), then 250 mg for 4 days (days 2-5) albuterol sulfate 90 mcg/actuation HFA aerosol inhaler 2 puff inhalation Q4-6H PRN (Reason: shortness of breath or wheezing) Qty: 8.5 0RF benzonatate 100 mg capsule 100 mg PO TID PRN (Reason: cough) 5 Days Qty: 15 0RF Stand Alone Forms: Work/School Release Interventions: ED Discharge Assessment Last Done: 05/17/24 17:46 Discharge Date/Time: 05/17/24 17:46 Print Language: Lebanese
[2024-05-17 13:06] LABS: Alanine Aminotransferase 17 U/L (0-31); Albumin Level 3.3 g/dL (3.5-5.0); Alkaline Phosphatase 70 U/L (39-117); Anion Gap 8 (12-20); Aspartate Amino Transferase 26 U/L (5-31); Bilirubin Total 0.7 mg/dL (0.0-1.0); Blood Urea Nitrogen 12 mg/dL (9-16); Calcium 8.7 mg/dL (8.4-10.2); Carbon Dioxide 27 mmol/L (22-29); Chloride 106 mmol/L (96-108); Estimated Glomerular Filt Rate > 60; Glucose Random 130 mg/dL (60-115); Lipase 106 U/L (8-78); Potassium 3.5 mmol/L (3.3-5.1); Sodium 137 mmol/L (135-145); Total Protein 7.2 g/dL (6.5-8.0)
[2024-05-17 13:16] LABS: Troponin-I High Sensitivity < 2.7 ng/L (<3.5-17.0)
[2024-05-17 14:00] VITALS: BP 132/91; PULSE 103; RESP 20; TEMP 37.2; O2SAT 99
[2024-05-17 15:15] LABS: IDNOW Serial# 58CA691E; Strep A Nucleic Acid Negative (Negative)
[2024-05-17 15:38] LABS: Influenza A PCR NEGATIVE (Negative); Influenza B PCR NEGATIVE (Negative); Resp Syncy Virus RNA Qual PCR NEGATIVE (Negative); SARS COV2 PCR INHOUSE NEGATIVE (Negative)
[2024-05-17 15:48] VITALS: BP 137/89; PULSE 98; RESP 20; O2SAT 98
[2024-05-17] MEDS: Acetaminophen 325 MG TABLET 975 MG PO (16:18)
[2024-05-17 16:21] VITALS: PULSE 87; RESP 18; O2SAT 97
[2024-05-17] MEDS: Albuterol Sulfate 2.5 MG, Albuterol Sulfate (0.083%) 2.5 MG 5 MG INHALE (16:24)
[2024-05-17 16:52] LABS: HCG Quantitative < 2 mIU/mL
[2024-05-17 17:46] VITALS: BP 00/00; PULSE 87; RESP 18; TEMP -17.7; TEMP 0
== END 2024-05-17 17:46 | disposition home or self-care (01) ==
PROVIDERS: Physician Assistant; Physician Assistant Medical; Emergency Provider Emergency Medicine; PCP Internal Medicine
DX: J18.9 Pneumonia, unspecified organism (principal); K59.00 Constipation, unspecified; R05.9 Cough, unspecified; R06.02 Shortness of breath; Z03.818 Encounter for observation for suspected exposure to other biological agents ruled out; R00.0 Tachycardia, unspecified
CPT/HCPCS: 0241U; 36415; 71046; 80053; 83690; 84484; 84702; 85025; 85610; 87651; 93005; 94640; 99284

== ENCOUNTER → 2024-05-17 12:39 | Outpatient (BNV) | payer OTHER, SELFPAY | PROVIDERS: Emergency Provider Emergency Medicine; PCP Internal Medicine; Visit Provider Internal Medicine Cardiovascular Disease | DX: R07.9 Chest pain, unspecified (principal); R94.31 Abnormal electrocardiogram [ECG] [EKG] | CPT/HCPCS: 93010 ==

== ENCOUNTER 2024-09-26 08:09 | Emergency (ER) | payer OTHER, SELFPAY ==
--- NOTE | ~2024-09-26 | XR_ITS ---
EXAMINATION: XR LUMBOSACRAL SPINE CLINICAL INFORMATION: Atraumatic back pain COMPARISON: None available. TECHNIQUE: Three views of the lumbosacral spine. FINDINGS: No acute cortical disruption or malalignment. No lytic or blastic lesions. Small marginal osteophyte formation and endplate sclerosis in the vertebral bodies of the lower thoracic spine.. XR/XR lumbar spine 2-3V IMPRESSION: No acute fracture or listhesis. Mild spondylosis, lower thoracic spine . Electronically signed by: Bartolo Cannon MD 09/26/2024 10:01 AM EDT
--- NOTE | ~2024-09-26 | XR_ITS ---
EXAMINATION: XR THORACIC SPINE CLINICAL INFORMATION: Atraumatic back pain COMPARISON: None available. TECHNIQUE: 3 views of the thoracic spine were obtained. FINDINGS: Mild multilevel marginal osteophyte formation and endplate sclerosis with decreased intervertebral disc height. No acute cortical disruption or malalignment. No lytic or blastic lesions. Inadequate evaluation due to exclusion of the lower thoracic spine on the AP projection. This has been correlated with recent lumbar spine x-ray. XR/XR thoracic spine 3V IMPRESSION: Mild multilevel spondylosis. Electronically signed by: Bartolo Cannon MD 09/26/2024 10:03 AM EDT
[2024-09-26 08:25] VITALS: BP 150/88; PULSE 75; RESP 18; TEMP 36.5; O2SAT 98; BMI 58.4
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
--- OUTSIDE RECORDS SUMMARY | 2024-09-26 09:08 | XMS_ITS | Clinical Summary ---
Author Organization [facility] [address] [facility] Address [address] [place] [address] Phone Care Team Providers Care Cnc Service Engineer Name Role Phone Kev Figueroa MD Primary Care Provider [phone] Allergies Active Allergy Reactions Criticality Noted Date Comments Other Runny nose 03/09/2024 Seasonal Allergies Medications medroxyPROGEST ERone (PROVERA) 10 mg tablet Take 1 tablet (10 mg total) by mouth. 10/24/19 24 Active diclofenac (VOLTAREN) 1 % topical gel Apply 4 g topically 2 (two) times a day if needed (pain). 16 g 04/05/20 24 Active cyclobenzaprin e (FLEXERIL) 5 mg tablet Take 1-2 tablets (5-10 mg total) by mouth at bedtime as needed for muscle spasms. 90 tablet 04/05/20 24 Active buPROPion XL (WELLBUTRIN XL) 150 mg 24 hr tablet TAKE 1 TABLET (150 MG TOTAL) BY MOUTH EVERY DAY DO NOT CRUSH,CHEW, OR SPLIT 90 tablet 09/05/19 25 Active amoxicillin (AMOXIL) 500 mg capsuleIndicat ions:Positive H. pylori test Take 1 capsule (500 mg total) by mouth 2 (two) times a day for 14 days. 28 each 09/15/19 25 025 Active clarithromycin (BIAXIN) 500 mg tabletIndicati ons:Positive H. pylori test Take 1 tablet (500 mg total) by mouth 2 (two) times a day for 14 days. 28 each 09/15/19 25 025 Active omeprazole (PRILOSEC) 20 mg tablet,delayed release (DR/EC)Indicat ions:Positive H. pylori test PLEASE SEE ATTACHED FOR DETAILED DIRECTIONS 58 tablet 09/19/19 25 Active buPROPion XL (WELLBUTRIN XL) 150 mg 24 hr tablet Take 1 tablet (150 mg total) by mouth 1 (one) time each day. Do not crush, chew, or split. 90 tablet 06/07/19 25 025 Discontinued ergocalciferol (VITAMIN D-2) 1,250 mcg (50,000 unit) capsuleIndicat ions:Vitamin D deficiency Take 1 capsule (50,000 Units total) by mouth 1 (one) time per week for 8 doses. 8 each 07/16/19 25 025 omeprazole (PriLOSEC) [address] capsuleIndicat ions:Positive H. pylori test TAKE 1 CAPSULE BY MOUTH TWICE A DAY FOR 14 DAYS, THEN 1 CAPSULE ONCE DAILY 58 capsule 08/28/19 25 025 Discontinued(Du plicate order) omeprazole OTC (PriLOSEC OTC) 20 mg EC tabletIndicati ons:Positive H. pylori test Take 1 tablet (20 mg total) by mouth 2 (two) times a day for 14 days, THEN 1 tablet (20 mg total) 1 (one) time each day. Do not crush, chew, or split.. 58 tablet 09/15/19 25 025 Discontinued omeprazole (PRILOSEC) 20 mg tablet,delayed release (DR/EC)Indicat ions:Positive H. pylori test PLEASE SEE ATTACHED FOR DETAILED DIRECTIONS 58 tablet 09/19/19 25 025 Discontinued Active Problems Problem Noted Date Diagnosed Date Class 3 severe obesity witho ut serious comorbidity with body mass index (BMI) of 50.0 to 59.9 in adult ([facility] V24, [facility] V28) 05/09/2024 Encounters Date Type Department Care Team Description 08/24/2024 8:00 AM EDT Telemedicine Bariatric Surgery - [address] [address] Class 3 severe obesity without serious comorbidity with body mass index (BMI) of 50.0 to 59.9 in adult, unspecified obesity type ([facility] V24, [facility] V28) (Primary Dx) 08/03/2024 Telephone Bariatric Surgery - [address] [place] [address] Weight Check (Weight check 350.4 lbs) 07/25/2024 12:30 PM EST Telemedicine Bariatric Surgery - [place] [address] [facility] [address] [place] [address] Class 3 obesity with alveolar hypoventilation without serious comorbidity with body mass index (BMI) of 50.0 to 59.9 in adult ([facility] V24, [facility] V28) (Primary Dx) from Last 3 Months Immunizations Name Administration Dates Next Due Hep B, Unspecified 10/31/2017 Hepatitis B (Vhvgejq-V-Ierdn , Recombivax HB-Adult) 19yo and older 11/03/2016,06/11/2016,05/05/2016 Influenza trivalent, MDCK, 0 .5mL, preservative free (Flucelvax) 6mo and older 06/07/2024 MMR, measles mumps and rubel la Live (Priorix; M-M-R II) 12mo and older 06/11/2016,01/14/2016 Measles 10/31/2017 Mumps 10/31/2017,12/10/2015 Litepoint SARS-CoV-2 COVID-19, mRNA, LNP-S, preservative free 04/22/2021 Tdap Tetanus diptheria acell ular pertussis (Boostrix; Adacel) 7yo and older 02/11/2017 Varicella live (Varivax) 12mo and older 11/01/19 18,12/10/2015 Surgical History Surgery Date Site/Laterality Comments OTHER SURGICAL HISTORY PROCEDURE: HISTORICAL EAR SURGERY; COMMENT: perforated ear, ear tubes and cholesteatoma removed WISDOM TOOTH EXTRACTION PROCEDURE: HISTORICAL WISDOM TEETH EXTRACTION SECTION 03/08/2015 PROCEDURE: HISTORICAL DELIVERY OTHER SURGICAL HISTORY 12/15/2020 PROCEDURE: ME DILATION & CURETTAGE DX&/THER NONOBSTETRIC; COMMENT: MAB at 8w3d Medical History Medical History Date Comments History of hypertension DX:Histo ry of hypertension Family History Medical History Relation Name Comments Diabetes Father Thyroid disease Father mini stroke Diabetes Maternal Grandmother mi, tian g cancer Hypertension Mother depression, anx iety Heart attack Uncle Breast cancer Neg Hx Colon cancer Neg Hx Ovarian cancer Neg Hx Pancreatic cancer Neg Hx Uterine cancer Neg Hx Relation Name Status Comments Brother Alive x2 full, x1 edouard f Father Alive Maternal Grandfather Maternal Grandmother Alive Mother Alive Paternal Grandfather Paternal Grandmother Sister Alive x1 half Uncle Social History Tobacco Use Types Packs/Day Years Used Date Smoking Tobacco: Never Smokeless Tobacco: Never Tobacco Cessation:Counseling Given: Not Answered Alcohol Use Standard Drinks/Week Comments No 0 (1 standard drink = 0.6 oz pur e alcohol) Comments No Sex and Gender Information Value Date Recorded Sex Assigned at Not on file Legal Sex Female 10:38 AM EST Gender Identity Not on file Sexual Orientation Not on file Obstetrics History Last Filed Vital Signs Vital Sign Reading Time Taken Comments Blood Pressure 142/84 06/07/2024 2:18 PM EST Pulse 78 06/07/2024 2:18 PM EST Temperature 36.9 ??C (98.4 ??F) 06/07/2024 2:18 PM ES T Respiratory Rate 18 06/07/2024 2:18 PM EST Oxygen Saturation - - Inhaled Oxygen Concentration - - Weight 159 kg (350 lb 6.4 oz) 08/24/2024 7:00 AM EDT Height 165.1 cm (5' 5 ) 06/07/2024 2:18 PM EST Body Mass Index 58.31 06/07/2024 2:18 PM EST Plan of Treatment Health Maintenance Due Date Last Done Comments Depression Screening 05/01/2022 Social Influencers of Health Screening 05/01/2022 COVID-19 Vaccine ( season) 2024 12/30/2021, 06/21/2021, 04/22/2021 DTaP,Tdap,and Td Vaccines (2 - Td or Tdap) 02/11/2027 02/11/2017 Cervical Cancer Screening: HPV 07/12/2027 07/12/2022 Cholesterol Screening (Lipid Panel) 07/02/2029 07/02/2024, 01/22/2021 MMR Vaccines Aged Out 06/11/2016, 01/14/2016 No lo nger eligible based on patient's age to complete this topic Hepatitis B Vaccines Completed 10/31/2017, 11/03/2016, 06/11/2016, Additional history exists Varicella Vaccines Aged Out 10/31/2017, 12/10/2015 No longer eligible based on patient's age to complete this topic HIV Screening Completed 10/25/2023, 10/24/2023 Hepatitis C Screening Completed 10/25/2023 Influenza Vaccine Completed 06/07/2024 HIB Vaccines Aged Out No longer eligi ble based on patient's age to complete this topic HPV Vaccines Aged Out No longer eligi ble based on patient's age to complete this topic Hepatitis A Vaccines Aged Out No long er eligible based on patient's age to complete this topic IPV Vaccines Aged Out No longer eligi ble based on patient's age to complete this topic Meningococcal ACWY Vaccine Aged Out N o longer eligible based on patient's age to complete this topic Meningococcal B Vaccine Aged Out No l onger eligible based on patient's age to complete this topic Pneumococcal Vaccine: Pediatrics (0 to 5 Years) and At-Risk Patients (6 to 64 Years) Aged Out No longer eligible based on patient's age to complete this topic RSV Immunization Patients Under 20 months Aged Out No longer eligible based on patient's age to complete this topic Procedures Procedure Name Priority Date/Time Associated Diagnosis Comments HELICOBACTER PYLORI BREATH TEST Routine 09/12/2024 11:05 AM EDT Class 3 obesity with alveolar hypoventilation without serious comorbidity with body mass index (BMI) of 50.0 to 59.9 in adult (CMS/HCC V24, CMS/HCC V28) CBC WITH AUTO DIFFERENTIAL Routine 07/02/2024 9:51 AM EST Class 3 severe obesity due to excess calories with body mass index (BMI) of 50.0 to 59.9 in adult, unspecified whether serious comorbidity present (CMS/HCC V24, CMS/HCC V28) VITAMIN B12 Routine 07/02/2024 9:51 AM EST Class 3 severe obesity due to excess calories with body mass index (BMI) of 50.0 to 59.9 in adult, unspecified whether serious comorbidity present (CMS/HCC V24, CMS/HCC V28) LIPID PANEL WITH REFLEX TO DIRECT LDL Routine 07/02/2024 9:51 AM EST Class 3 severe obesity due to excess calories with body mass index (BMI) of 50.0 to 59.9 in adult, unspecified whether serious comorbidity present (CMS/HCC V24, CMS/HCC V28) MAGNESIUM Routine 07/02/2024 9:51 AM EST Class 3 severe obesity due to excess calories with body mass index (BMI) of 50.0 to 59.9 in adult, unspecified whether serious comorbidity present (CMS/HCC V24, CMS/HCC V28) NICOTINE AND COTININE Routine 07/02/2024 9:51 AM EST Class 3 severe obesity due to excess calories with body mass index (BMI) of 50.0 to 59.9 in adult, unspecified whether serious comorbidity present (CMS/HCC V24, CMS/HCC V28) THYROID STIMULATING HORMONE Routine 07/02/2024 9:51 AM EST Class 3 severe obesity due to excess calories with body mass index (BMI) of 50.0 to 59.9 in adult, unspecified whether serious comorbidity present (CMS/HCC V24, CMS/HCC V28) VITAMIN B1 Routine 07/02/2024 9:51 AM EST Class 3 severe obesity due to excess calories with body mass index (BMI) of 50.0 to 59.9 in adult, unspecified whether serious comorbidity present (CMS/HCC V24, CMS/HCC V28) VITAMIN D 25 HYDROXY Routine 07/02/2024 9:51 AM EST Class 3 severe obesity due to excess calories with body mass index (BMI) of 50.0 to 59.9 in adult, unspecified whether serious comorbidity present (CMS/HCC V24, CMS/HCC V28) IRON AND TIBC Routine 07/02/2024 9:51 AM EST Class 3 severe obesity due to excess calories with body mass index (BMI) of 50.0 to 59.9 in adult, unspecified whether serious comorbidity present (CMS/HCC V24, CMS/HCC V28) HEMOGLOBIN A1C Routine 07/02/2024 9:51 AM EST Class 3 severe obesity due to excess calories with body mass index (BMI) of 50.0 to 59.9 in adult, unspecified whether serious comorbidity present (CMS/HCC V24, CMS/HCC V28) HELICOBACTER PYLORI BREATH TEST Routine 07/02/2024 9:51 AM EST Class 3 severe obesity due to excess calories with body mass index (BMI) of 50.0 to 59.9 in adult, unspecified whether serious comorbidity present (CMS/HCC V24, CMS/HCC V28) FOLATE Routine 07/02/2024 9:51 AM EST Class 3 severe obesity due to excess calories with body mass index (BMI) of 50.0 to 59.9 in adult, unspecified whether serious comorbidity present (CMS/HCC V24, CMS/HCC V28) FERRITIN Routine 07/02/2024 9:51 AM EST Class 3 severe obesity due to excess calories with body mass index (BMI) of 50.0 to 59.9 in adult, unspecified whether serious comorbidity present (CMS/HCC V24, CMS/HCC V28) CORTISOL Routine 07/02/2024 9:51 AM EST Class 3 severe obesity due to excess calories with body mass index (BMI) of 50.0 to 59.9 in adult, unspecified whether serious comorbidity present (CMS/HCC V24, CMS/HCC V28) COMPREHENSIVE METABOLIC PANEL Routine 07/02/2024 9:51 AM EST Class 3 severe obesity due to excess calories with body mass index (BMI) of 50.0 to 59.9 in adult, unspecified whether serious comorbidity present (CMS/HCC V24, CMS/HCC V28) CBC AND DIFFERENTIAL Routine 07/02/2024 9:51 AM EST Class 3 severe obesity due to excess calories with body mass index (BMI) of 50.0 to 59.9 in adult, unspecified whether serious comorbidity present (CMS/HCC V24, CMS/HCC V28) HM HEPATITIS C SCREENING Routine 10/25/2023 HIV SCREENING Routine 10/25/2023 HPV Routine 07/12/2022 from Last 3 Months or Most Recently Relevant to Health Maintenance Results * (ABNORMAL) Helicobacter pylori breath test (09/12/2024 11:05 AM EDT) Only the most recent of2 resultswithin the time period is included. H Pylori Breath Test Positive( A) Negative LAB CHEMISTRY METHOD 09/12/2024 2:32 PM EDT [facility] Breath Oral cavity structure / Unknown Non-blood Collection / Unknown 09/12/2024 11:05 AM EDT 09/12/2024 11:05 AM EDT us Bronson Gilbert MD LAB BODY FLUIDS AND STOOLS O RDERABLES Final Result [facility] [address] [place] [address], [place] [phone] * Lipid panel with reflex to direct LDL (07/02/2024 9:51 AM EST) Cholesterol 142 0 - 200 mg/dL LAB CHEMISTRY METHOD 07/02/2024 4:19 PM EST [facility] Triglycerides 57 0 - 150 mg/dL LAB CHEMISTRY METHOD 07/02/2024 4:19 PM EST [facility] HDL 42 >=40 mg/dL LAB CHEMISTRY METHOD 07/02/2024 4:19 PM EST [facility] LDL Calculated 89 0 - 100 mg/dL LAB CHEMISTRY METHOD 07/02/2024 4:19 PM EST [facility] VLDL Cholesterol Husam 11.4 mg/dL LAB CHEMISTRY METHOD 07/02/2024 4:19 PM EST [facility] Non HDL Chol. (LDL+VLDL) 100 <145 mg/dL LAB CHEMISTRY METHOD 07/02/2024 4:19 PM EST [facility] Chol/HDL Ratio 3.4 0.0 - 4.4 LAB CHEMISTRY METHOD 07/02/2024 4:19 PM EST [facility] Blood Venous blood specimen / Unknown Venipuncture / Unknown 07/02/2024 9:51 AM EST 07/02/2024 9:51 AM EST No [facility] LAB BLOOD ORDERABLES Final R esult [facility] [address] [place] [address], * Nicotine and cotinine (07/02/2024 9:51 AM EST) Nicotine <2.0 <2.0 ng/mL 07/09/2024 6:43 AM EST [facility] Cotinine <2.0 <2.0 ng/mL 07/09/2024 6:43 AM EST [facility] Comment: ?Additional Reference Ranges: ? Active Tobacco ? Passive ? Abstinence ?User ?Exposure ?? 2 Weeks and more ? Nicotine ?30 - 50 ??ng/mL ?<2 ng/mL ?<2 ng/mL Cotinine ?? 200 - 800 ng/mL ?<8 ng/mL ?<2 ng/mL Reference Ranges from: ??Clin. Chem.; ??[id number] (2001) Direct any interpretive questions to the toxicology laboratory. This is for medical use only, it is not intended for forensic use. If applicable, any drug confirmation testing reported here was developed and the performance characteristics determined by [facility]. This confirmation testing has not been cleared or approved by the FDA. The laboratory is regulated under CLIA as qualified to perform high-complexity testing. This test is used for patient testing purposes. It should not be regarded as investigational or for research. Test performed at [facility], [address] , [place], [place] ??[address] ? [phone] Birdie Summers MD, PhD - Neon Sign Erector Blood Venous blood specimen / Unknown Venipuncture / Unknown 07/02/2024 9:51 AM EST 07/02/2024 9:51 AM EST No [facility] LAB BLOOD ORDERABLES Final R esult [facility] [address] [place] [address] * (ABNORMAL) CBC auto differential (07/02/2024 9:51 AM EST) WBC 7.4 4.8 - 10.8 K/mcL LAB HEMETOLOGY METHOD 07/02/2024 11:30 AM [facility] RBC 4.70 3.80 - 4.80 M/mcL LAB HEMETOLOGY METHOD 07/02/2024 11:30 AM [facility] Hemoglobin 12.4 11.5 - 16.0 g/dL LAB HEMETOLOGY METHOD 07/02/2024 11:30 AM [facility] Hematocrit 39.9 35.0 - 47.0 % LAB HEMETOLOGY METHOD 07/02/2024 11:30 AM [facility] MCV 84.2 79.0 - 98.0 FL LAB HEMETOLOGY METHOD 07/02/2024 11:30 AM [facility] MCH 26.2(L) 27.0 - 32.0 pcg LAB HEMETOLOGY METHOD 07/02/2024 11:30 AM [facility] MCHC 31.1(L) 32.0 - 37.0 g/dL LAB HEMETOLOGY METHOD 07/02/2024 11:30 AM [facility] RDW 14.3 11.0 - 15.0 % LAB HEMETOLOGY METHOD 07/02/2024 11:30 AM [facility] Platelets 249 130 - 400 K/mcL LAB HEMETOLOGY METHOD 07/02/2024 11:30 AM [facility] MPV 11.3(H) 7.0 - 11.0 FL LAB HEMETOLOGY METHOD 07/02/2024 11:30 AM [facility] NRBC 0.0 <1.0 % LAB HEMETOLOGY METHOD 07/02/2024 11:30 AM [facility] NRBC Absolute 0.00 <0.10 K/mcL LAB HEMETOLOGY METHOD 07/02/2024 11:30 AM [facility] Neutrophils Relative 65.7 % LAB HEMETOLOGY METHOD 07/02/2024 11:30 AM [facility] Lymphocytes Relative 26.5 % LAB HEMETOLOGY METHOD 07/02/2024 11:30 AM [facility] Monocytes Relative 5.8 % LAB HEMETOLOGY METHOD 07/02/2024 11:30 AM [facility] Eosinophils Relative 1.2 % LAB HEMETOLOGY METHOD 07/02/2024 11:30 AM [facility] Basophils Relative 0.5 % LAB HEMETOLOGY METHOD 07/02/2024 11:30 AM [facility] Immature Granulocytes Relative 0.3 % LAB HEMETOLOGY METHOD 07/02/2024 11:30 AM EST [facility] Neutrophils Absolute 4.86 1.50 - 7.00 K/mcL LAB HEMETOLOGY METHOD 07/02/2024 11:30 AM EST [facility] Lymphocytes Absolute 1.96 1.00 - 5.00 K/mcL LAB HEMETOLOGY METHOD 07/02/2024 11:30 AM [facility] Monocytes Absolute 0.43 0.20 - 1.00 K/mcL LAB HEMETOLOGY METHOD 07/02/2024 11:30 AM EST [facility] Eosinophils Absolute 0.09 0.00 - 0.50 K/mcL LAB HEMETOLOGY METHOD 07/02/2024 11:30 AM [facility] Basophils Absolute 0.04 0.00 - 0.20 K/mcL LAB HEMETOLOGY METHOD 07/02/2024 11:30 AM [facility] Immature Granulocytes Absolute 0.02 0.00 - 0.03 K/[facility] LAB HEMETOLOGY METHOD 07/02/2024 11:30 AM [facility] Blood Venous blood specimen / Unknown Venipuncture / Unknown 07/02/2024 9:51 AM EST 07/02/2024 9:51 AM EST No [facility] LAB BLOOD ORDERABLES Final R esult [facility] [address] [place] [address], * (ABNORMAL) Iron and TIBC (07/02/2024 9:51 AM EST) Iron 38(L) 40 - 150 mcg/dL LAB CHEMISTRY METHOD 07/02/2024 4:19 PM EST [facility] TIBC 269 250 - 450 mcg/dL LAB CHEMISTRY METHOD 07/02/2024 4:19 PM [facility] Iron Saturation 14(L) 15 - 50 % LAB CHEMISTRY METHOD 07/02/2024 4:19 PM EST [facility] Blood Venous blood specimen / Unknown Venipuncture / Unknown 07/02/2024 9:51 AM EST 07/02/2024 9:51 AM EST us No [facility] LAB BLOOD ORDERABLES Final R esult Performing Organization Address City/[facility]/ZIP Co de Phone Number [facility] [address] [place] [address], [place] [phone] * (ABNORMAL) Vitamin D 25 hydroxy (07/02/2024 9:51 AM EST) Pathologist [facility] [place] Vit D, 25-Hydroxy 15.5(L) 30.0 - 80.0 ng/mL LAB CHEMISTRY METHOD 07/02/2024 4:03 PM EST [facility] Blood Venous blood specimen / Unknown Venipuncture / Unknown 07/02/2024 9:51 AM EST 07/02/2024 9:51 AM EST us No [facility] LAB BLOOD ORDERABLES Final R esult Performing Organization Address [facility] Co de Phone Number [facility] [address] [place] [address], [place] [phone] * Thyroid stimulating hormone (07/02/2024 9:51 AM EST) Pathologist [facility] TSH 2.77 0.40 - 4.00 mcIU/mL LAB CHEMISTRY METHOD 07/02/2024 4:04 PM EST [facility] Blood Venous blood specimen / Unknown Venipuncture / Unknown 07/02/2024 9:51 AM EST 07/02/2024 9:51 AM EST us No [facility] LAB BLOOD ORDERABLES Final R esult Performing Organization Address City/[facility]/ZIP Co de Phone Number [facility] [address] [place] [address], [place] [phone] * Vitamin B1 (07/02/2024 9:51 AM EST) [facility] Vitamin B1 Whole Blood 57 38 - 122 ug/L 07/05/2024 7:55 AM EST [facility] Comment: This test was developed and the performance characteristics determined by [facility]. It has not been cleared or approved by the FDA. The laboratory is regulated under CLIA as qualified to perform high-complexity testing. This test is used for patient testing purposes. It should not be regarded as investigational or for research. Test performed at [facility], [address] , [place], [place] ??[address] ? [phone] Birdie Summers MD, PhD - Neon Sign Erector Blood Venous blood specimen / Unknown Venipuncture / Unknown 07/02/2024 9:51 AM EST 07/02/2024 9:51 AM EST No [facility] LAB BLOOD ORDERABLES Final R esult [facility] [address] [place] [address] * (ABNORMAL) Magnesium (07/02/2024 9:51 AM EST) [facility] Magnesium 1.6(L) 1.9 - 2.6 mg/dL LAB CHEMISTRY METHOD 07/02/2024 3:55 PM EST [facility] Blood Venous blood specimen / Unknown Venipuncture / Unknown 07/02/2024 9:51 AM EST 07/02/2024 9:51 AM EST No [facility] LAB BLOOD ORDERABLES Final R esult [facility] [address] [place] [address], [place] [phone] * Hemoglobin A1c (07/02/2024 9:51 AM EST) [facility] Hemoglobin A1C 5.8 <6.5 % LAB CHEMISTRY METHOD 07/02/2024 1:40 PM EST [facility] Mean Bld Glu Estim. 120 mg/dL LAB CHEMISTRY METHOD 07/02/2024 1:40 PM [facility] Blood Venous blood specimen / Unknown Venipuncture / Unknown 07/02/2024 9:51 AM EST 07/02/2024 9:51 AM EST us No [facility] LAB BLOOD ORDERABLES Final R esult [facility] [address] [place] [address], [place] [phone] * Folate (07/02/2024 9:51 AM EST) [facility] Folate 9.2 2.8 - 17.0 ng/ml LAB CHEMISTRY METHOD 07/02/2024 4:19 PM EST [facility] Blood Venous blood specimen / Unknown Venipuncture / Unknown 07/02/2024 9:51 AM EST 07/02/2024 9:51 AM EST us No [facility] LAB BLOOD ORDERABLES Final R esult [facility] [address] [place] [address], [place] [phone] * Ferritin (07/02/2024 9:51 AM EST) [facility] Ferritin 24 8 - 252 ng/mL LAB CHEMISTRY METHOD 07/02/2024 4:19 PM EST [facility] Blood Venous blood specimen / Unknown Venipuncture / Unknown 07/02/2024 9:51 AM EST 07/02/2024 9:51 AM EST us No [facility] LAB BLOOD ORDERABLES Final R esult Performing Organization Address [facility]/ZIP Co de Phone Number [facility] [address] [place] [address], [place] [phone] * Vitamin B12 (07/02/2024 9:51 AM EST) Pathologist [facility] [place] Vitamin B-12 468 250 - 900 pcg/mL LAB CHEMISTRY METHOD 07/02/2024 4:19 PM EST [facility] Blood Venous blood specimen / Unknown Venipuncture / Unknown 07/02/2024 9:51 AM EST 07/02/2024 9:51 AM EST No [facility] LAB BLOOD ORDERABLES Final R esult Performing Organization Address [facility] de Phone Number [facility] [address] [place] [address], [place] [phone] * Cortisol (07/02/2024 9:51 AM EST) [facility] Cortisol 9.2 mcg/dL LAB CHEMISTRY METHOD 07/02/2024 4:04 PM EST [facility] Blood Venous blood specimen / Unknown Venipuncture / Unknown 07/02/2024 9:51 AM EST 07/02/2024 9:51 AM EST Narrative [facility] - 07/02/2024 4:04 PM EST CORTISOL REFERENCE RANGE ?? 8 AM SPEC: ??5.0-23.0 mcg/dL ?? 4 PM SPEC: ??3.0-16.0 mcg/dL ?? 8 PM SPEC: ??<5.0 mcg/dL No [facility] LAB BLOOD ORDERABLES Final R esult Performing Organization Address [facility] Co de Phone Number [facility] [address] [place] [address], [place] [phone] * (ABNORMAL) Comprehensive metabolic panel (07/02/2024 9:51 AM EST) Sodium 138 133 - 145 mmol/L LAB CHEMISTRY METHOD 07/02/2024 4:19 PM [facility] Potassium 4.7 3.5 - 5.5 mmol/L LAB CHEMISTRY METHOD 07/02/2024 4:19 PM [facility] Chloride 107 96 - 110 mmol/L LAB CHEMISTRY METHOD 07/02/2024 4:19 PM [facility] CO2 29 21 - 32 mmol/L LAB CHEMISTRY METHOD 07/02/2024 4:19 PM [facility] Anion Gap 2(L) 3 - 11 LAB CHEMISTRY METHOD 07/02/2024 4:19 PM [facility] Glucose 107(H) 70 - 100 mg/dL LAB CHEMISTRY METHOD 07/02/2024 4:19 PM [facility] BUN 16 5 - 25 mg/dL LAB CHEMISTRY METHOD 07/02/2024 4:19 PM [facility] Creatinine 0.79 0.50 - 1.10 mg/dL LAB CHEMISTRY METHOD 07/02/2024 4:19 PM [facility] eGFR 102 >=60 mL/min/1. 73m2 LAB CHEMISTRY METHOD 07/02/2024 4:19 PM [facility] Comment:Calculation based on the??Chronic Kidney Disease Epidemiology Collaboration (CKD-EPI) equation refit??without adjustment for race. BUN/Creatinine Ratio 20.3 LAB CHEMISTRY METHOD 07/02/2024 4:19 PM [facility] Calcium 9.2 8.5 - 10.5 mg/dL LAB CHEMISTRY METHOD 07/02/2024 4:19 PM [facility] AST (SGOT) 12 10 - 42 unit/L LAB CHEMISTRY METHOD 07/02/2024 4:19 PM [facility] ALT (SGPT) 22 10 - 60 unit/L LAB CHEMISTRY METHOD 07/02/2024 4:19 PM EST [facility] Alkaline Phosphatase 86 42 - 121 unit/L LAB CHEMISTRY METHOD 07/02/2024 4:19 PM [facility] Total Protein 6.8 6.0 - 8.0 g/dL LAB CHEMISTRY METHOD 07/02/2024 4:19 PM [facility] Albumin 3.1(L) 3.2 - 5.0 g/dL LAB CHEMISTRY METHOD 07/02/2024 4:19 PM [facility] Total Bilirubin 0.4 0.0 - 1.4 mg/dL LAB CHEMISTRY METHOD 07/02/2024 4:19 PM [facility] Blood Venous blood specimen / Unknown Venipuncture / Unknown 07/02/2024 9:51 AM EST 07/02/2024 9:51 AM EST No [facility] BLOOD ORDERABLES Final R esult [facility] [address] [place] [address], * HIV Screening (10/25/2023) HIV Screening abstracted Historical Provider HEALTH MAINTENANCE Final Result * Hepatitis C Screening (10/25/2023) Pathologist [facility] Hepatitis C Screening abstracted Historical Provider HEALTH MAINTENANCE Final Result * Cervical Cancer Screening: HPV (07/12/2022) Pathologist [facility] Cervical Cancer Screening: HPV negative abstracted Historical Provider HEALTH MAINTENANCE Final Result from Last 3 Months or Most Recently Relevant to Health Maintenance Insurance [employer] [facility] [address] [place] [address] [employer]CIAL [employer]IC Care Teams [employer] Service Engineer Relationship Specialty Start Date End Date Kev Figueroa MD [address] [place] [address] PCP - General Internal Medicine 09/22/21
[2024-09-26 09:50] LABS: MANUAL DIFF FLAG NO
[2024-09-26 09:58] LABS: Basophils Percent Auto 0.5 % (0-2); Eosinophils Absolute Auto 0.1 X10*3/uL (0.0-0.4); Eosinophils Percent Auto 0.8 % (0-4); Hematocrit 38.1 % (37.0-47.0); Hemoglobin 12.6 g/dl (12.0-16.0); Imm Gran Abs Auto 0.03 X10*3/uL (0.00-0.03); Imm Gran Pct Auto 0.4 % (0.0-0.4); Mean Corpuscular HGB Conc 33.1 g/dl (31.0-35.0); Mean Corpuscular Hemoglobin 26.1 pg (27.0-33.0); Mean Corpuscular Volume 78.9 fL (80.0-98.0); Monocytes Absolute Auto 0.5 X10*3/uL (0.1-1.2); Monocytes Percent Auto 5.9 % (2-11); Neutrophils Absolute Auto 5.9 x10*3/uL (2.0-8.3); Neutrophils Percent Auto 69.4 % (45-73); Platelet Count 235 X10*3/uL (160-400); Red Blood Count 4.83 X10*6/uL (4.20-5.50); Red Cell Distribution Width 13.8 % (11.0-16.0); White Blood Count 8.5 X10*3/uL (4.8-10.8)
[2024-09-26 10:07] LABS: Alanine Aminotransferase 19 U/L (0-31); Albumin Level 3.6 g/dL (3.5-5.0); Alkaline Phosphatase 96 U/L (39-117); Anion Gap 11 (12-20); Aspartate Amino Transferase 35 U/L (5-31); Bilirubin Total 0.4 mg/dL (0.0-1.0); Blood Urea Nitrogen 15 mg/dL (9-16); Carbon Dioxide 27 mmol/L (22-29); Chloride 105 mmol/L (96-108); Creatinine Clr Calc Pharmacy 166.4; Estimated Glomerular Filt Rate > 60; Glucose Random 112 mg/dL (60-115); Lipase 40 U/L (8-78); Magnesium 1.6 mg/dL (1.6-2.6); Potassium 4.4 mmol/L (3.3-5.1); Sodium 139 mmol/L (135-145); Total Protein 7.3 g/dL (6.5-8.0)
[2024-09-26] MEDS: Ketorolac Tromethamine 30 MG/ML VIAL IM (10:07)
[2024-09-26] MEDS: Lidocaine 4 % Patch ADH..PATCH 1 PATCH TRANSDERMA (10:08)
[2024-09-26 10:24] VITALS: BP 118/76; PULSE 76; RESP 18; O2SAT 95
[2024-09-26 11:10] LABS: Appearance Urine Clear; Color Urine Yellow; Glucose Urine UA Negative (Negative); Leukocyte Esterase Urine Negative (Negative); Nitrite Urine Negative (Negative); Specific Gravity - Urine 1.025 (1.005-1.025); Urine Blood Negative (Negative); Urine Ketones Negative (Negative); Urine Protein Negative (Neg-Trace)
[2024-09-26 11:11] LABS: UPreg QC Valid YES; Urine Pregnancy NEGATIVE (NEGATIVE)
[2024-09-26 11:40] VITALS: BP 118/76; PULSE 76; RESP 18; TEMP 36.2; O2SAT 95
== END 2024-09-26 11:40 | disposition home or self-care (01) ==
PROVIDERS: Physician Assistant Medical; Emergency Provider Emergency Medicine; PCP Internal Medicine
DX: M54.6 Pain in thoracic spine (principal); M54.50 Low back pain, unspecified; Z79.899 Other long term (current) drug therapy
CPT/HCPCS: 36415; 72072; 72100; 80053; 81003; 81025; 83690; 83735; 85025; 96372; 99283; 99284; J1885

== ENCOUNTER → 2024-09-26 09:31 | Outpatient (BNV) | payer OTHER, SELFPAY | PROVIDERS: Emergency Provider Emergency Medicine; PCP Internal Medicine; Visit Provider Radiology Diagnostic Radiology | DX: M47.894 Other spondylosis, thoracic region (principal); M54.50 Low back pain, unspecified | CPT/HCPCS: 72072; 72100 ==